=== PATIENT | female | born 1980 | race Caucasian/White ===

== ENCOUNTER 2018-10-22 11:57 | Emergency (ER) | END 2018-10-22 13:49 | disposition home or self-care (01) ==

== ENCOUNTER 2018-11-24 09:13 | Emergency (ER) | payer MEDICARE, OTHER ==
[~2018-11-24] VITALS: Ht 167.6 cm; Wt 82.1 kg
[~2018-11-24 09:13] MED LIST: PRED20TA PO
[2018-11-24 09:15] VITALS: BP 114/71; Ht 167.6 cm; Wt 82.1 kg
[2018-11-24] MEDS ORDERED: ALBUTEROL 0.5% (NEB) 2.5 MG/0.5 ML AMP INH STA (09:29)
[2018-11-24] MEDS ORDERED: DEXAMETHASONE 10 MG/ML 1 ML INJ IM ONE (09:30)
--- NOTE | 2018-11-24 09:39 | ERD ---
ER Documentation Chief Complaint Chief Complaint Complains of SOB Hx Of asthma HPI 38-year-old female with history of asthma presents the ED for asthma exacerbation. Patient states that she is currently visiting her sister. Her sister has a dog in the house. Patient reports feeling itchy all over, and was wheezing all night last night. She is using albuterol inhaler without relief. Patient also reports bilateral ear pain, left worse than the right. Denies fever or chills. ROS All systems reviewed and are negative except as per history of present illness. Medications Home Meds Active Scripts Loratadine* (Claritin*) 10 Mg Tablet, 10 MG PO DAILY, #20 TAB Prov:AMANDA VEE. PROOFING MACHINE OPERATOR 11/24/18 Neomycin/Polymyxin/Hydrocort* (Cortisporin* Otic) 10 Ml Susp, 4 DROP BOTH EARS QID for 7 Days, EA Prov:AMANDA VEE. PROOFING MACHINE OPERATOR 11/24/18 Prednisone* (Prednisone*) 20 Mg Tab, 40 MG PO DAILY for 5 Days, TAB Prov:DONALD ALFARO MD 10/22/18 Allergies Allergies: Coded Allergies: acetaminophen (Verified Allergy, Severe, SOB,HIVES,EDEMA, 07/20/07) aspirin (Verified Allergy, Severe, S.O.B ,HIVES , EDEMA, 07/20/07) ibuprofen (Verified Allergy, Severe, HIVES, SWOLLEN, SOB, 07/20/07) isoniazid (Verified Allergy, Severe, EDEMA HIVES, 07/20/07) naproxen (Verified Allergy, Severe, SOB,HIVES,EDEMA, 07/20/07) pseudoephedrine (Verified Allergy, Severe, SOB,HIVES,EDEMA, 07/20/07) pyrilamine (Verified Allergy, Severe, SOB,HIVES,EDEMA, 07/20/07) amoxicillin (Verified Allergy, Unknown, 10/22/18) cetirizine (Verified Allergy, Unknown, 10/22/18) PMhx/Soc History of Surgery: Yes (B ear surgery) Anesthesia Reaction: No Hx Neurological Disorder: No Hx Respiratory Disorders: Yes (asthma) Hx Cardiac Disorders: No Hx Psychiatric Problems: No Hx Miscellaneous Medical Probl: Yes (samter's disease) Hx Alcohol Use: No Hx Substance Use: No Hx Tobacco Use: No Smoking Status: Never smoker Physical Exam Vitals Vital Signs Date Temp Pulse Resp B/P (MAP) Pulse Ox O2 O2 Flow FiO2 Time Delivery Rate 11/24/18 97 20 100 Nasal 2.0 09:37 Cannula 11/24/18 97.0 120 20 114/71 98 09:15 (85) Physical Exam General: Well-developed, well-nourished, conscious and coherent, in no distress Skin: Warm and dry without rash, good texture and turgor Eyes: Sclera and conjunctivae normal; pupils equal, round, and reactive to light; extraocular movements are intact Ears: Canals are patent, with diffuse canal narrowing and tragal tenderness bilaterally. Tympanic membranes are clear Nose/Face: Clear rhinorrhea. Patient is noted to be blowing her nose forcefully. Chest: Normal AP diameter. Good expansion without retractions. Nontender. Diffuse wheezing noted. O2 sat 98%, which is within normal range Heart: Regular rate and rhythm, tachycardic. No murmur, rub, or gallops heard Extremities: Full range of motion. Good strength bilaterally. No erythema, ecchymosis, or edema. Peripheral pulses are intact. Sensation intact Neuro: Alert and oriented 4, GCS 15. Results 24 hrs Current Medications Medications Dose Sig/Trevor Start Time Status Last (Trade) Ordered Route PRN Stop Time Admin Dose Reason Admin 10 mg ONCE ONCE 11/24/18 DC 11/24/18 Dexamethasone IM 09:30 09:34 (Decadron) 11/24/18 09:31 Albuterol 10 mg ONCE STAT 11/24/18 DC 11/24/18 (Proventil INH 09:29 09:36 0.5% (Neb)) 11/24/18 09:30 650 mg ONCE ONCE 11/24/18 DC 11/24/18 Acetaminophen PO 10:30 10:32 (Tylenol 11/24/18 Tab) 10:31 Procedures/MDM 38-year-old female presented to ED for asthma exacerbation. Dexamethasone 10 mg IM, albuterol 10 mg 1 hour continuous nebulizer treatment given to the patient in ED. patient's lungs are clear after the neb treatment. Patient medical records reviewed, this is his second time patient was seen here for asthma exacerbation after visiting her sister and exposed to the dog. I prescribed Cla ritin for the patient for allergies. She also complaining of bilateral ear pain, exam is consistent with acute otitis externa. No sign of suppurative otitis media or ruptured tympanic membrane. Patient requests tramadol and [place] in the ED for her ear pain. However, she refused Tylenol stating that she is allergic. Patient is behavior suspicious for drug-seeking. Patient appears well, stable for discharge and outpatient management. Medical decision making shared with patient and family. Education provided to patient and family. Patient and family expressed understanding of the plan. Medications on discharge: Cortisporin otic, Claritin. Follow-up: Primary care provider in 2-3 days or return to ED if worse. Disclaimer: Inadvertent spelling and grammatical errors are likely due to EHR/dictation software use and do not reflect on the overall quality of patient care. Also, please note that the electronic time recorded on this note does not necessarily reflect the actual time of the patient encounter. Departure Diagnosis: Primary Impression: Asthma attack Condition: Stable AMANDA VEE NP Nov 24, 2018 09:39
[2018-11-24] MEDS ORDERED: NPH10OT BOTH EARS (10:29)
[2018-11-24] MEDS ORDERED: ACETAMINOPHEN 325 MG TAB PO ONE (10:30)
[2018-11-24] MEDS ORDERED: LORA-186 PO (10:30)
[2018-11-24 10:37] VITALS: PULSE 102; RESP 18
== END 2018-11-24 10:43 | disposition home or self-care (01) ==
LOC: FTE 09:13
DX: J45.901 Unspecified asthma with (acute) exacerbation (principal); R40.2412 Glasgow coma scale score 13-15, at arrival to emergency department
CPT/HCPCS: 94644; 96372; 99284; J1100